=== PATIENT | male | born 1980 | race Caucasian/White ===

== ENCOUNTER 2017-12-23 02:47 | Emergency (ER) | payer OTHER ==
[~2017-12-23] VITALS: Ht 180.3 cm; Wt 81.7 kg
[~2017-12-23 02:47] MED LIST: NOHOMEMEDICATIONS
[2017-12-23 04:10] VITALS: BP 148/109
== END 2017-12-23 04:11 | disposition home or self-care (01) ==
LOC: M.ERS 02:47
DX: H10.9 Unspecified conjunctivitis (principal); F17.210 Nicotine dependence, cigarettes, uncomplicated; Z88.5 Allergy status to narcotic agent; Z88.6 Allergy status to analgesic agent

== ENCOUNTER 2018-01-03 13:51 | Inpatient (IN) | payer OTHER ==
[~2018-01-03] VITALS: Ht 180.3 cm; Wt 87.4 kg
[2018-01-03 13:58] VITALS: BP 151/106
[2018-01-03] MEDS ORDERED: PRED-FORTE OPHTH1 M1 INTRAOCULR (14:01)
[2018-01-03 14:14] LABS: HEMATOCRIT 53.4 % (42.0-52.0); HEMOGLOBIN 18.3 gm/dL (14.0-18.0); MCH 30.7 pg (26.0-34.0); MCHC 34.3 g/dL (28.0-37.0); MCV 89.3 fL (80.0-100.0); MPV 8.3 fl. (7.2-11.1); NUCLEATED RBCS 0 /100WBC; PLATELET COUNT* 340 thou/uL (150-400); RBC 5.98 mil/uL (4.50-6.00); RDW-CV 13.2 % (10.5-14.5); WBC 22.3 thou/uL (4.0-11.0)
[2018-01-03 14:24] LABS: CALCIUM 9.9 mg/dL (8.5-10.1); CREATININE 1.3 mg/dL (0.6-1.3); POTASSIUM 3.5 mmol/L (3.5-5.1)
[2018-01-03 14:29] LABS: ALBUMIN 4.2 g/dL (3.4-5.0); TOTAL BILIRUBIN 0.3 mg/dL (<0.1-1.0)
[2018-01-03 14:51] LABS: ABSOLUTE LYMPHOCYTES 1.8 thou/uL (0.8-5.3); ABSOLUTE MONOCYTES 1.1 thou/uL (0.0-1.2); ABSOLUTE NEUTROPHILS 19.4 thou/uL (1.6-8.1)
[2018-01-03 14:52] LABS: LARGE PLATELETS OCCASIONAL; PLATELET ESTIMATE ADEQUATE
[2018-01-03 15:55] VITALS: BP 157/117
[2018-01-03 16:42] VITALS: BP 159/108
--- NOTE | 2018-01-03 17:26 | NUR ---
ASSUMED CARE OF PATIENT AT 1605 AFTER TRANSFER TO ROOM 230 FROM EMERGENCY DEPARTMENT. PATIENT AWAKE, ALERT, AND ORIENTED APPROPRIATELY. ADMISSION ASSESSMENT AND DOCUMENTATION COMPLETED AND CHARTED. COMPLAINED OF PAIN. GIVEN PRN MEDICATIONS, SEE EMAR FOR DOCUMENTATION. HYPERTENSIVE, BUT OTHER VITAL SIGNS STABLE. OXYGEN SATURATION WITHIN NORMAL LIMITS ON ROOM AIR. PATIENT IS UP AD JEFF. EDUCATED ON HOW TO USE CALL LIGHT APPROPRIATELY, WITHIN REACH. DENIES NEEDS AT THIS TIME. NURSING WILL CONTINUE TO MONITOR.
[2018-01-03 19:52] VITALS: BP 157/109
[2018-01-04] VITALS: BP 168/102
[2018-01-04 04:00] VITALS: BP 164/94
--- NOTE | 2018-01-04 06:51 | NUR ---
Pt received IV fentanyl q3h overnight. Rating pain 8-9, but reports adequate relief after each dose though states "it wears off within an hour." This am, pt reports he is more comfortable, states abdomen feels sore today rather than acutely painful. BP 150s-160s/90s-100s. States he tends to run high in hospital or doctor's office due to "white coat syndrome." NPO. Up ad jun in room, and up in hallway this morning per pt request; gait steady. Will continue to monitor.
[2018-01-04 08:02] VITALS: BP 130/94
--- NOTE | 2018-01-04 09:15 | NUR ---
ASSUMED CARE OF PATIENT AFTER REPORT THIS MORNING. PATIENT AWAKE, ALERT, AND ORIENTED APPROPRIATELY. PHYSICAL ASSESSMENT COMPLETED AND CHARTED. COMPLAINED OF PAIN. VITAL SIGNS STABLE. OXYGEN SATURATION WITHIN NORMAL LIMITS ON ROOM AIR. REFUSED SCHEDULED EYE DROPS, GIVEN PRN PAIN MEDICATION, SEE EMAR FOR DOCUMENTATION. PATIENT IS UP AD JEFF IN ROOM. RECEIVING IV FLUIDS AT THIS TIME AT ORDERED RATE OF 250 ML/HR. USES CALL LIGHT APPROPRIATELY, WITHIN REACH. DENIES NEEDS AT THIS TIME. NURSING WILL CONTINUE TO MONITOR.
--- NOTE | 2018-01-04 13:25 | NUR ---
MET WITH PT TO DISCUSS HOME SITUATION/DC PLANNING. PT LIVES WITH HIS 12Y/O DTR. MOTHER LIVES CLOSEBY AND IS SUPPORTIVE. PT IS GETTING READY TO START NEW JOB, IS ON COBRA FROM HIS PREVIOUS JOB AT THIS TIME. DENIES ETOH EXCEPT FOR 1-2X/MONTH. DR MERINO IN AND DISCUSSED DX AND PLAN WITH PT. HE WAS ABLE TO ASK QUESTIONS. PT IS INDEPENDENT AND ACTIVE. DENIES NEEDS AT THIS TIME. WILL FOLLOW
[2018-01-04 13:35] LABS: CALCIUM 8.3 mg/dL (8.5-10.1); CREATININE 0.8 mg/dL (0.6-1.3); MAGNESIUM 1.8 mg/dL (1.8-2.4); POTASSIUM 3.7 mmol/L (3.5-5.1)
[2018-01-04 16:00] VITALS: BP 144/92
--- NOTE | 2018-01-04 17:43 | NUR ---
PATIENT REMAINS ALERT AND ORIENTED APPROPRIATELY. HAS RECEIVED PRN PAIN MEDICATIONS SOON ORDERED FREQUENCY ALLOWS. UP AD JEFF. DENIES NEEDS AT THIS TIME. CALL LIGHT WITHIN REACH. NURSING WILL CONTINUE TO MONITOR.
[2018-01-04 19:53] VITALS: BP 150/98
[2018-01-05] VITALS: BP 155/100
[2018-01-05 04:00] VITALS: BP 155/49
[2018-01-05 04:37] LABS: ABSOLUTE BASOPHILS 0.1 thou/uL (0.0-0.2); ABSOLUTE LYMPHOCYTES 0.7 thou/uL (0.8-5.3); ABSOLUTE MONOCYTES 1.2 thou/uL (0.0-1.2); BASOPHILS 0.2 %; LYMPHOCYTES 3.1 %; MCH 30.1 pg (26.0-34.0); MCHC 32.8 g/dL (28.0-37.0); MCV 91.6 fL (80.0-100.0); MONOCYTES 4.9 %; MPV 8.4 fl. (7.2-11.1); NUCLEATED RBCS 0 /100WBC; POLYS 91.8 %; RDW-CV 13.6 % (10.5-14.5)
[2018-01-05 04:58] LABS: ALBUMIN 2.9 g/dL (3.4-5.0); CALCIUM 7.7 mg/dL (8.5-10.1); CREATININE 0.8 mg/dL (0.6-1.3); HEMOGLOBIN 14.5 gm/dL (14.0-18.0); PLATELET COUNT* 208 thou/uL (150-400); POTASSIUM 3.4 mmol/L (3.5-5.1); TOTAL BILIRUBIN 0.8 mg/dL (<0.1-1.0); TOTAL PROTEIN 5.6 g/dL (6.4-8.2)
--- NOTE | 2018-01-05 06:13 | NUR ---
Pt reports he slept "on and off" overnight. No complaints. VSS; HR 40s-60s. SB-SR per monitor. Pt states he is hopeful of being discharged today. Will continue to monitor.
--- NOTE | 2018-01-05 06:16 | NUR ---
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 Receiving fentanyl every 3-4 hours per pt request. States he has not passed flatus all shift. Bwl snds hypoactive; abdomen round and firm. Reports last bowel movement was 7/10 am prior to admission. Lipase level this am down to 1800. Pt ambulating in hallway at times; encouraged to increase activity as he is able to promote GI motility and for DVT prevention. VSS. Will continue to monitor.
[2018-01-05 08:00] VITALS: BP 157/99
--- NOTE | 2018-01-05 12:52 | EKG ---
[place] [address] ELECTROCARDIOGRAM REPORT Name: ZBIGNIEW RODRIGUEZ Room: [address] ADM [place] [facility]#: [id number] Admission: 01/03/18 Attend Phys: Destiny Poole Discharge: Date of : 78 Report #: [id number] THIS REPORT FOR: //name// [facility] ED Test Date: 2018-01-03 Test Time: 15:53:23 Pat Name: ZBIGNIEW MICHAEL Department: Room: [place] [address] Gender: M Full Fashioned Garment Knitter: Dustin GUERRERO : 1980 Requested By: Rishi Hui Order Number: [id number] MD: Deon Casanova Measurements Intervals [place] Rate: 88 P: 56 TN: 161 QRS: -53 QRSD: 94 T: 30 QT: 381 QTc: 461 Interpretive Statements Sinus rhythm Probable left atrial enlargement RSR' in V1 or V2, right VCD or RVH Inferior infarct, old Consider anterior infarct No previous ECG available for comparison Electronically Signed On 01-05-2018 12:52:46 CDT by Deon Casanova [email or web address] <ELECTRONICALLY SIGNED> By: Deon Casanova MD, [facility] 01/05/18 1252 1553 1553 Deon Casanova MD, [facility] /EPI
[2018-01-05 16:12] VITALS: BP 174/106
--- NOTE | 2018-01-05 19:55 | NUR ---
RECEIVED REPORT FROM FRANCISCA CARR. ASSUMED CARE OF PT AROUND 0730. PT A&OX4. VSS. O2 SAT 94% ON RA. PT M/S STATUS. AM ASSESSMENT AND VITALS COMPLETED CHARTED. IV TO LEFT AC INTACT AND INFUSING IVF. PT HAS COMPLAINED OF GENERALIZED ABDOMINAL PAIN THIS SHIFT THAT HAS BEEN MANAGED WITH IV PAIN MEDICATION WITH PARTIAL RELIEF. PT UNABLE TO TOLERATE ADVANCEMENT IN DIET THIS SHIFT - PT STATED THAT PAIN WORSENED WITH FOOD. PT HAS BEEN UP TO THE BATHROOM TO VOID SEVERAL TIMES THIS SHIFT. PT INFORMED OF PLAN OF CARE, COMMUNICATES UNDERSTANDING. PT CURRENTLY RESTING IN BED. HOURLY ROUNDING PERFORMED. LOW FALL RISK PRECAUTIONS IN PLACE. CALL LIGHT IS WITHIN REACH.
[2018-01-05 20:40] VITALS: BP 167/106
[2018-01-06] VITALS: BP 167/103
[2018-01-06 04:00] VITALS: BP 175/110
--- NOTE | 2018-01-06 06:17 | NUR ---
PT AWAKE ON AND OFF THIS SHIFT. ASSESSMENT DOCUMENTED. MEDS GIVEN PER E-MAR. IV PATENT, FLUIDS INFUSING. PT REPORTED PAIN, PAIN MEDS GIVEN PER E-MAR. PT STATED HEAT HELPS PAIN. WILL CONTINUE WITH PLAN OF CARE.
[2018-01-06 08:00] VITALS: BP 164/119
--- NOTE | 2018-01-06 11:14 | NUR ---
RECEIVED REPORT FROM MARY CARR. ASSUMED CARE OF PT AROUND 0730. PT A&O X4, VSS, O2 SAT 97% ON RA. PT M/S STATUS. AM ASSESSMENT AND VITALS COMPLETED CHARTED. IV TO LEFT AC INTACT AND INFUSING IVF. PT STILL REQUIRING IV PAIN MEDICATION Q3HRS FOR PAIN, ALTHOUGH PT STATES THAT HIS PAIN IS SOME BETTER TODAY COMPARED WITH YESTERDAY. HEATING PAD ALSO OBTAINED FOR PT AND APPLIED TO HIS BACK - PT REPORTS RELIEF WITH HEATING PAD. PT ABLE TO EAT PART OF A BANANA, SOME CEREAL, AND SOME PEACHES FOR BREAKFAST THIS AM. PT ALSO ABLE TO SHOWER. PT CONCERNED ABOUT COMING OFF IV PAIN MEDICATION DUE TO LIMITED ORAL PAIN MEDICATION OPTIONS AVALIABLE TO PT - PT IS ALLERGIC TO OPIOIDS. PT CURRENTLY RESTING IN BED. CALL LIGHT IS WITHIN REACH, LOW FALL RISK PRECAUTIONS IN PLACE. HOURLY ROUNDING PERFORMED. WCTM.
[2018-01-06 15:38] VITALS: BP 168/111
--- NOTE | 2018-01-06 15:42 | NUR ---
PT PASSED OFF TO MOHIT CARR, REPORT GIVEN.
--- NOTE | 2018-01-06 19:54 | NUR ---
RECIEVED REPORT FROM BRUNO GARCÍA. PT RESTING IN BED, DENIES NEED FOR PAIN MEDS. STARTED ON K+ TONIGHT TO REPLACE. VERBALIZES NEEDS APPROPRILATY. REPORT GIVEN TO ONCOMING SOFIE CARR.
[2018-01-06 20:10] VITALS: BP 167/111
[2018-01-07 00:23] VITALS: BP 176/103
[2018-01-07 03:54] VITALS: BP 157/103
[2018-01-07 05:11] LABS: POTASSIUM 2.9 mmol/L (3.5-5.1)
--- NOTE | 2018-01-07 06:46 | NUR ---
PT IS ABLE TO COMMUNICATE HIS NEEDS TO STAFF EFFECTIVELY. CURRENT ORAL PAIN MEDICATION REGIMEN HAS BEEN ADEQUATE FOR CONTROLLING HIS PAIN UP TO THIS TIME; HE HAS REFUSED IV PAIN MEDICATIONS DURING THIS SHIFT, UP TO THIS TIME. PT HAS BEEN UP AMBULATING IN THE NAVARRETE TWICE DURING THIS SHIFT SO FAR. POSSIBLE DISCHARGE LATER TODAY.
[2018-01-07 08:00] VITALS: BP 159/109
--- NOTE | 2018-01-07 08:00 | NUR ---
ASSUMED PT. CARE AND RECEIVED REPORT AT 0730. PT A/OX4, VSS, PT. MED/SURG STATUS. ON RA @ 100%. PT. STATES PAIN IN ABD. IS 4/10. FULL ASSESSMENT COMPLETED, REFER TO CHARTING. IVF'S AND IV K+ INFUSING PER ORDERS. CALL LIGHT IN REACH, WILL CONTINUE [facility] PLAN OF CARE.
[2018-01-07] MEDS ORDERED: ROXICODONE5 M2 PO (10:40)
[2018-01-07] MEDS ORDERED: MIRALAX17 GM PO (11:43)
[2018-01-07 11:44] VITALS: BP 159/109
[2018-01-07] MEDS ORDERED: TYLENOL EXTRA500 MG PO (11:44)
[2018-01-07 14:52] LABS: HEMATOCRIT 44.4 % (42.0-52.0); HEMOGLOBIN 14.6 gm/dL (14.0-18.0); MCH 30.2 pg (26.0-34.0); MCHC 32.8 g/dL (28.0-37.0); MCV 91.9 fL (80.0-100.0); MPV 9.1 fl. (7.2-11.1); RBC 4.83 mil/uL (4.50-6.00); RDW-CV 13.7 % (10.5-14.5); WBC 19.4 thou/uL (4.0-11.0)
--- NOTE | 2018-01-07 15:30 | NUR ---
DR. MCCORMACK CONTACTED TO INQUIRE ABOUT PLAN FOR DC. DC ORDERS WRITTEN [place] . DISCUSSED PT C/O OF CONSTIPATION, EATING BREAKFAST/LUNCH, AND CURRENT LIPASE. ORDERS RECEIVED FOR CBC AND MAG CITRATE. STATED HE WANTED TO SEE PT. THIS EVENING BEFORE DECIDING, BUT WAS NOT KEEN ON PT. LEAVING TODAY.
[2018-01-07 16:20] VITALS: BP 172/104
--- NOTE | 2018-01-07 19:03 | NUR ---
POTASSIUM REMAINS BELOW NORMAL LIMITS, RESTARTED ON IV POTASSIUM FOR REPLACEMENT. PT. STATES HE DID NOT EAT DINNER. OFFERED SNACK/LIQUIDS ON UNIT DECLINED AT THIS TIME, STATES HE HAS NO APPETITE. PT. STATES HE IS HAVING ACTIVE BOWEL SOUNDS/ACTIVITY, BUT NO BM OF YET. PT. IS OBSESSING ABOUT HAVING A BM, THINKS IT WILL MAKE HIM FEEL BETTER. HOURLY ROUNDING COMPLETED THROUGH OUT THE DAY FOR PT. SAFETY.
[2018-01-07 20:36] VITALS: BP 167/110
[2018-01-08 04:00] VITALS: BP 156/101
[2018-01-08 04:38] LABS: HEMATOCRIT 46.5 % (42.0-52.0); HEMOGLOBIN 15.6 gm/dL (14.0-18.0); MCH 30.4 pg (26.0-34.0); MCHC 33.5 g/dL (28.0-37.0); MCV 90.6 fL (80.0-100.0); MPV 8.1 fl. (7.2-11.1); NUCLEATED RBCS 0 /100WBC; PLATELET COUNT* 280 thou/uL (150-400); RBC 5.13 mil/uL (4.50-6.00); RDW-CV 13.4 % (10.5-14.5); WBC 22.5 thou/uL (4.0-11.0)
[2018-01-08 04:53] LABS: CALCIUM 8.8 mg/dL (8.5-10.1); CREATININE 0.7 mg/dL (0.6-1.3); MAGNESIUM 2.6 mg/dL (1.8-2.4); PHOSPHORUS* 2.1 mg/dL (2.5-4.9)
[2018-01-08 04:58] LABS: POTASSIUM 4.3 mmol/L (3.5-5.1)
--- NOTE | 2018-01-08 05:52 | NUR ---
PT IS ABLE TO COMMUNICATE HIS NEEDS TO STAFF EFFECTIVELY. HE HAS DENIED THE NEED FOR PAIN MEDICATION UP TO THIS TIME. PT DID RESUME HAVING BOWEL MOVEMENTS LATE LAST NIGHT; REPORTS FEELING "LESS BLOATED" BUT DID HAVE SOME NAUSEA. PT HAS BEEN GETTING UP TO THE BATHROOM AND WALKING IN HIS ROOM DURING THIS SHIFT. GI HAS BEEN CONSULTED. POSSIBLE D/C SOON PENDING GI EVALUATION.
[2018-01-08 06:00] LABS: ABSOLUTE LYMPHOCYTES 0.9 thou/uL (0.8-5.3); ABSOLUTE MONOCYTES 1.1 thou/uL (0.0-1.2); ABSOLUTE NEUTROPHILS 20.5 thou/uL (1.6-8.1); ANISOCYTOSIS Occasional; PLATELET ESTIMATE ADEQUATE
[2018-01-08 06:01] LABS: TOXIC GRANULATION 1+
--- NOTE | 2018-01-08 14:06 | NUR ---
ORDER RECEIVED TO DISCHARGE [facility] TO SELF CARE. MED REC, MEDICATION EDUCATION, STROKE EDUCATION, SMOKING CESSATION, AND NEED FOR FOLLOW UP APPOINTMENTS WITH PRIMARY AND DR MCCORMACK COVERED AND STATED UNDERSTOOS BY PATIENT. IV DC'D AND PATINET CHOSE TO AMBULATE TO CAR OUTSIDE OF E.D. HOURLY ROUNDING COMPLETD FOR PATIENT SAFETY AND PATINET PARTICIPATED IN PLAN OF CARE. PATIENT GIVEN EXTENSIVE EDUCATION RELATED TO DIET AND SIGNS OF WHEN TO CALL FOR ADDITIONAL ASSISTANCE IF NEEDED. DC TIME OF 14l:00.
--- NOTE | 2018-01-10 16:59 | CON ---
[address] [address] CONSULTATION Name: ZBIGNIEW RODRIGUEZ Room: [address]#: [id number] Admission: 01/03/18 Attend Phys: Destiny Poole Discharge: 01/08/18 Date of : 78 Report #: [id number] THIS REPORT FOR: //name// CC: [facility] physician/PCP Crescencio Howe DATE OF SERVICE: 01/06/2018 REQUESTING PHYSICIAN: Crescencio Howe DO REASON FOR CONSULT: Persistent abdominal pain and pancreatitis. HISTORY OF PRESENT ILLNESS: This is a 37-year-old male who was admitted to hospital on 01/03/2018 with abdominal pain. The patient found to have evidence of pancreatitis as his lipase was elevated above 10,000. There was also CT finding suggestive of peripancreatic inflammation and stranding. Since hospitalization, the patient has been on IV fluids and pain control. Since his pain was not improving today, we were consulted. CT of abdomen and pelvis has been ordered to be repeated as the patient has persistent leukocytosis and abdominal pain. The patient is going to CT at this time. PAST MEDICAL HISTORY: Unremarkable. ALLERGIES: No known drug allergy. MEDICATIONS: Please refer to hospital [facility]. SOCIAL HISTORY: The patient smokes half a pack of cigarettes per day and socially drinks. FAMILY HISTORY: Noncontributory. PHYSICAL EXAMINATION: VITAL SIGNS: Reveals blood pressure 164/119, respirations 20, pulse 83, temperature 98.1. LUNGS: Clear. CARDIOVASCULAR: Regular. ABDOMEN: Soft, tender to palpation in the epigastric region. Bowel sounds are positive. LABORATORY DATA: Reveal sodium of 138, potassium 3.4, BUN is 7, creatinine 0.8, glucose is 81. AST 31, ALT 19, alkaline phosphatase 76, total bilirubin is 0.8. Lipase is 1875, down from 10,698. WBC is 24 from 22,000. Hemoglobin is 14.5 and platelet of 208. IMAGING: [place] [address] CONSULTATION Name: ZBIGNIEW RODRIGUEZ Room: [address]#: [id number] Admission: 01/03/18 Attend Phys: Destiny Poole Discharge: 01/08/18 Date of : 78 Report #: [id number] ASSESSMENT AND PLAN: The patient with acute pancreatitis who has persistent abdominal pain and leukocytosis. I agree with repeating CT to assure that the patient does not have peripancreatic abscess or phlegmons. We will continue monitoring and follow up with his CT results. We will make further recommendation based on the CT. Please note that there is no evidence of biliary causes for pancreatitis as the patient's liver enzymes are within normal levels. <ELECTRONICALLY SIGNED> By: Any Carlton MD 01/10/18 1659 1358 2020Any Carlton MD /wei
== END 2018-01-08 13:58 | disposition home or self-care (01) | DRG 439 ==
LOC: M.ERS 13:51 → M.TBA-ER 15:06 → M.2W 15:06
PROVIDERS: Internal Medicine Gastroenterology; Physician Assistant; ADMIT Internal Medicine
DX: K85.90 Acute pancreatitis without necrosis or infection, unspecified (principal); R65.10 Systemic inflammatory response syndrome (SIRS) of non-infectious origin without acute organ dysfunction; E44.1 Mild protein-calorie malnutrition; D72.829 Elevated white blood cell count, unspecified; F17.210 Nicotine dependence, cigarettes, uncomplicated; Z88.6 Allergy status to analgesic agent

== ENCOUNTER 2018-01-17 10:16 | Inpatient (IN) | payer OTHER ==
[~2018-01-17] VITALS: Ht 180.3 cm; Wt 76.0 kg
[~2018-01-17 10:16] MED LIST changes: +MIRALAX17 GM PO; +PRED-FORTE OPHTH1 M1 INTRAOCULR; +ROXICODONE5 M2 PO; +TYLENOL EXTRA500 MG PO
[2018-01-17 10:23] VITALS: BP 122/76
[2018-01-17 10:46] LABS: ABSOLUTE BASOPHILS 0.1 thou/uL (0.0-0.2); ABSOLUTE EOSINOPHILS 0.2 thou/uL (0.0-0.7); ABSOLUTE LYMPHOCYTES 1.9 thou/uL (0.8-5.3); ABSOLUTE MONOCYTES 0.8 thou/uL (0.0-1.2); ABSOLUTE NEUTROPHILS 12.1 thou/uL (1.6-8.1); BASOPHILS 0.4 %; EOSINOPHILS 1.3 %; HEMATOCRIT 47.6 % (42.0-52.0); HEMOGLOBIN 15.8 gm/dL (14.0-18.0); LYMPHOCYTES 12.4 %; MCH 29.7 pg (26.0-34.0); MCHC 33.2 g/dL (28.0-37.0); MCV 89.7 fL (80.0-100.0); MONOCYTES 5.6 %; MPV 8.2 fl. (7.2-11.1); NUCLEATED RBCS 0 /100WBC; PLATELET COUNT* 451 thou/uL (150-400); POLYS 80.3 %; RBC 5.31 mil/uL (4.50-6.00); RDW-CV 13.5 % (10.5-14.5)
[2018-01-17 10:58] LABS: CALCIUM 10.1 mg/dL (8.5-10.1); CREATININE 1.2 mg/dL (0.6-1.3); POTASSIUM 3.8 mmol/L (3.5-5.1)
[2018-01-17 11:02] LABS: ALBUMIN 3.6 g/dL (3.4-5.0); TOTAL BILIRUBIN 0.6 mg/dL (<0.1-1.0); TOTAL PROTEIN 8.7 g/dL (6.4-8.2)
[2018-01-17 11:11] LABS: URINE BILIRUBIN NEGATIVE (Negative); URINE BLOOD NEGATIVE (Negative); URINE CLARITY CLEAR; URINE COLOR YELLOW; URINE GLUCOSE-RANDOM NEGATIVE (Negative); URINE KETONES 1+ (Negative); URINE LEUKOCYTES-REFLEX NEGATIVE (Negative); URINE NITRITE-REFLEX NEGATIVE (Negative); URINE PROTEIN NEGATIVE (Negative); URINE SPECIFIC GRAVITY <= 1.005 (1.005-1.030); URINE UROBILINOGEN 0.2 E.U./dl (0.2-1.0)
[2018-01-17 15:05] VITALS: BP 139/99
[2018-01-17 15:15] VITALS: BP 142/101
--- NOTE | 2018-01-17 16:53 | NUR ---
PATIENT ADMITTED TO ROOM 313 FROM ER. ALERT AND ORIENTED X 4. RATING ABD PAIN A 4/10, PRN FENTANYL GIVEN PER AUG ORDERS. PATIENT TAKING IN ICE CHIPS, OK PER GI. NO SKIN BREAKDOWN NOTED. UP AD JEFF. ORIENTED TO CALL LIGHT. CALL LIGHT WITHIN REACH, WILL CONTINUE TO MONITOR.
[2018-01-17 19:50] VITALS: BP 151/99
--- NOTE | 2018-01-18 05:46 | NUR ---
PT SLEPT ON AND OFF THIS SHIFT. ASSESSMENT DOCUMENTED. MEDS GIVEN PER E-MAR. IV PATENT, FLUIDS INFUSING. PAIN MEDS GIVEN PER E-MAR PER PT REQUEST. PT HAD ONE EPISODE OF EMESIS THIS SHIFT. PT REPORTS HAVING SPASMS IN ABDOMEN. WILL CONTINUE WITH PLAN OF CARE.
[2018-01-18 07:50] VITALS: BP 149/103
--- NOTE | 2018-01-18 13:40 | NUR ---
CM SPOKE TO THE PATIENT TO DISCUSS HOME SITUATION, DISCHARGE PLANNING, AND TO INFORM OF THE ROLE OF CM. PATIENT ALERT, ORIENTED, ACTIVE AND INDEPENDENT. PATIENT RESIDES AT HOME WITH DTR. PATIENT DOES NOT ANTICIPATE ANY NEEDS AT D/C. CM WILL REMAIN AVAILABLE TO ASSIST AND FOLLOW NEEDED.
--- NOTE | 2018-01-18 16:19 | NUR ---
PATIENT GIVEN PRN FENTANYL Q2 HOURS FOR ABD PAIN. PATIENT VOMITTED X 2 THIS SHIFT, PRN ZOFRAN GIVEN ORDERED. IVF INFUSING ORDERED. PATIENT UP AD JEFF AROUND ROOM. CLEAR LIQUIDS STARTED THIS EVENING AFTER ABD US WAS COMPLETED, RESULTS PENDING AT THIS TIME. PRN LEVSIN STARTED THIS SHIFT.
[2018-01-18 16:41] VITALS: BP 136/94
--- NOTE | 2018-01-18 16:41 | CON ---
[facility] [address] [place] [address] CONSULTATION Name: ZBIGNIEW RODRIGUEZ Room: [address] [place] .R.#: [id number] Admission: 01/17/18 Attend Phys: Destiny Poole Discharge: Date of : 78 Report #: [id number] THIS REPORT FOR: //name// CC: [facility] physician/PCP Mae Howe DICTATED BY: Deedee GOODENP DATE OF SERVICE: 01/18/2018 PRIMARY CARE PHYSICIAN: Mae Evans M.D. Please note at the time of this dictation, the patient was seen and physically examined by myself. REASON FOR CONSULTATION: Recurrent pancreatitis and abdominal pain. HISTORY OF PRESENT ILLNESS: This is a 37-year-old male who presented to the Emergency Room with abdominal discomfort that was progressively getting worse. The patient had been discharged from the hospital on 01/08/2018 for the same factor, prompting him to return. At the time of discharge, his lipase level had gone back down to normal and he was to follow up with us in the office. The patient states once he is discharged, he eats out a lot, mainly fast food, at least twice a day. It was also noted on CT on 01/03/2018 that he had a 4-cm cyst forming and now it is up to 6.5. He states that his pain was getting significantly worse, prompting him to come back in. He denied any fever or chills and he denies any alcohol on a regular basis. ALLERGIES: CODEINE, MORPHINE AND OPIOIDS. MEDICATIONS: From home was mainly Roxicodone, otherwise negative. PAST MEDICAL HISTORY: He has had recurrent pancreatitis. PAST SURGICAL HISTORY: SVT with an ablation and a right knee surgery. FAMILY HISTORY: Negative. SOCIAL HISTORY: Alcohol, maybe once a month, but not on a regular basis. Denies any tobacco or illegal drug use. REVIEW OF SYSTEMS: Twelve-point review of systems is essentially negative, except what is mentioned in the HPI. PHYSICAL EXAMINATION: [place] [address] CONSULTATION Name: ZBIGNIEW RODRIGUEZ Room: [address] IN [facility]#: [id number] Admission: 01/17/18 Attend Phys: Destiny Poole Discharge: Date of : 78 Report #: [id number] VITAL SIGNS: Temperature 36.5, pulse 77, respirations 16 and blood pressure 149/103. HEART: Regular rate and rhythm. LUNGS: Clear. ABDOMEN: Soft. Positive bowel sounds in all 4 quadrants, with tenderness noted in the left upper to mid epigastric area. LABORATORY DATA: Hemoglobin 15.8, hematocrit 47.6, white count is 15 and platelets 451,000. Lipase is 2779 on admission and it is down to 1567. Sodium 134, potassium 3.8, chloride 97, CO2 of 27, BUN is 10, creatinine is 1.2, GFR is 68 and glucose is 105. CT this time shows mild steatosis with a large fluid collection over the pancreatic head and neck region, with mild surrounding edema and this fluid collection is at 6.5 cm. IMPRESSION: 1. Abdominal pain, worsening. 2. Recurrent pancreatitis. 3. Leukocytosis. PLAN: 1. Levsin a.c. and at bedtime. 2. Recheck a lipase level now and we will also check an IgG-4 for autoimmune pancreatitis as well as fasting lipids in the a.m. 3. Trial of a clear liquid diet. 4. Consider possibility of draining of his pancreatic cyst. 5. Further recommendations to be made once Dr. Carlton sees the patient later today. Thank you for allowing us to participate in this patient's care. Please do not hesitate to call with any questions in regard to this consult. <ELECTRONICALLY SIGNED> By: Any Carlton MD 01/18/18 1641 1253 [id number] Carlton MD /nt
[2018-01-18 20:10] VITALS: BP 150/98
[2018-01-19 04:30] LABS: CHOLESTEROL 113 mg/dL (<200); HDL CHOLESTEROL 34 mg/dL (>40); LDL CHOLESTEROL 62 mg/dL (<100); TC:HDL 3.3 Ratio (Not establshd); TRIGLYCERIDE 88 mg/dL (<150); VLDL 18 mg/dL (<40)
[2018-01-19 04:48] LABS: SERUM ASSESSMENT CLEAR
--- NOTE | 2018-01-19 06:20 | NUR ---
PT AWAKE ON AND OFF THIS SHIFT. ASSESSMENT DOCUMENTED. MEDS GIVEN PER E-MAR. PT REPORTED UNCONTROLLABLE PAIN THIS SHIFT. PT STATED THAT DILAUDED REALLY KNOCKED HIM OUT AND LET HIM SLEEP. PT STATED THIS AM THAT THE DILAUDED STARTS TO WEAR OFF AFTER 2 HOURS. PT UP WALKING NAVARRETE SEVERAL TIMES THIS SHIFT. PT REFUSED HIS HYOSCYAMINE BECAUSE HE STATED THAT IT DID NOTHING TO HELP HIS CRAMPING, ONLY THE DILAUDED HELPED. IV PATENT, FLUIDS INFUSING. WILL CONTINUE WITH PLAN OF CARE.
[2018-01-19 08:57] VITALS: BP 136/95
--- NOTE | 2018-01-19 15:47 | NUR ---
ASSUMED CARES OF PT AT 0700. PT IN BED, BED IN LOW LOCKED POSITION. PT CRYING R/T PAIN HE REPORTS AT 9/10 AT SHIFT CHANGE. IVP DILAUDID EFFECTIVE.VSS ON RA, AFEBRILE, PERRLA, SKIN INTACT WITH SCATTERED BRUISING AND SCARS. PT UP AD JEFF. RIGHT AC IV PATENT TO FLUIDS AT 250 ML/HR, TOLERATED. FULL LIQUID DIET, TOLERATED AT THIS TIME. CONSULTS INCLUDE GI. PT REFUSES LEVSIN, PT STATES IT DOES NOT DO ANYTHING FOR PAIN/SPASMS. CALL BUTTON AND PERSONAL ITEMS IN PT REACH. PT SLEEPING MUCH OF SHIFT TO THIS TIME. HOURLY ROUNDING CONTINUES. WILL CONTINUE TO MONITOR PT STATUS AND PROGRESS.
[2018-01-19 16:23] VITALS: BP 159/109
--- NOTE | 2018-01-19 20:16 | NUR ---
REPORT TO UNDERWRITING CLERKS SUPERVISOR FOR CONTINUED CARES. PT STABLE AT SHIFT CHANGE. SCHEDULED FOR ABD XRAY SERIES AND CT OF ABD/PELVIS PER DR. HORTA WHO WANTS TO BE CALLED WITH TEST RESULTS THIS EVENING. IV IN RIGHT AC PATENT WITH NS AT 250 ML/HR, TOLERATED. PT REQUESTS DILAUDID (SCHEDULED Q4HR) Q 4-5 HOURS CONSISTENTLY, 1 ML IS ALL THAT IS NEEDED, IT MAKES PT VERY SLEEPY AND CONTROLS PAIN WELL. OCCASIONAL NAUSEA REPORTED BY PT BUT MEDS WERE PT REFUSED. PT REFUSES LEVISIN CONSISTENTLY HE REPORTS IT DOES NOTHING FOR HIM. HOURLY ROUNDING COMPLETED.
[2018-01-19 21:10] LABS: IgG 973 mg/dL (700-1600)
[2018-01-19 22:25] VITALS: BP 152/100
--- NOTE | 2018-01-20 00:23 | NUR ---
CALL PLACED TO GI ANSWERING SERVICE FOR A RETURN CALL TO GIVE RESULTS OF PT'S CT AND 3-VIEW ABD SERIES AT 2250. NO RETURN CALL AT THIS TIME.
[2018-01-20 04:45] LABS: HEMATOCRIT 37.5 % (42.0-52.0); MCH 29.7 pg (26.0-34.0); MCV 90.1 fL (80.0-100.0); NUCLEATED RBCS 0 /100WBC; RBC 4.16 mil/uL (4.50-6.00); RDW-CV 13.5 % (10.5-14.5); WBC 15.3 thou/uL (4.0-11.0)
[2018-01-20 04:58] LABS: ALBUMIN 2.5 g/dL (3.4-5.0); CREATININE 0.7 mg/dL (0.6-1.3); POTASSIUM 3.8 mmol/L (3.5-5.1); TOTAL BILIRUBIN 1.1 mg/dL (<0.1-1.0); TOTAL PROTEIN 5.7 g/dL (6.4-8.2)
[2018-01-20 04:59] LABS: HEMOGLOBIN 12.4 gm/dL (14.0-18.0); PLATELET COUNT* 363 thou/uL (150-400)
[2018-01-20 05:52] LABS: ABSOLUTE LYMPHOCYTES 1.2 thou/uL (0.8-5.3); ABSOLUTE MONOCYTES 1.2 thou/uL (0.0-1.2); ABSOLUTE NEUTROPHILS 12.9 thou/uL (1.6-8.1)
[2018-01-20 05:53] LABS: ANISOCYTOSIS 1+; PLATELET ESTIMATE ADEQUATE; POIKILOCYTOSIS 1+
[2018-01-20 07:45] VITALS: BP 136/97
--- NOTE | 2018-01-20 11:12 | NUR ---
Nutrition: Recommend Vital AF 1.2 @ goal rate 75mL/hr. See RD Assessment Form for details.
[2018-01-20 17:01] VITALS: BP 148/103
[2018-01-21] VITALS: BP 142/88
[2018-01-21 04:45] LABS: ABSOLUTE EOSINOPHILS 0.2 thou/uL (0.0-0.7); ABSOLUTE LYMPHOCYTES 1.1 thou/uL (0.8-5.3); ABSOLUTE MONOCYTES 1.3 thou/uL (0.0-1.2); ABSOLUTE NEUTROPHILS 10.6 thou/uL (1.6-8.1); BASOPHILS 0.3 %; EOSINOPHILS 1.7 %; HEMATOCRIT 35.7 % (42.0-52.0); HEMOGLOBIN 11.9 gm/dL (14.0-18.0); LYMPHOCYTES 8.1 %; MCHC 33.2 g/dL (28.0-37.0); MCV 90.2 fL (80.0-100.0); MONOCYTES 9.7 %; NUCLEATED RBCS 0 /100WBC; PLATELET COUNT* 364 thou/uL (150-400); POLYS 80.2 %; RBC 3.95 mil/uL (4.50-6.00); RDW-CV 13.3 % (10.5-14.5); WBC 13.2 thou/uL (4.0-11.0)
[2018-01-21 05:26] LABS: CALCIUM 8.1 mg/dL (8.5-10.1); CREATININE 0.7 mg/dL (0.6-1.3)
--- NOTE | 2018-01-21 05:52 | NUR ---
PATIENT SLEPT MOST OF THE NIGHT. IV FLUIDS CONTINUE TO INFUSE AT 250 ML/HR. PATIENT WAS GIVEN PAIN MEDICINE ABOUT EVERY THREE TO FOUR HOURS WITH GOOD RELIEF. WILL CONTINUE TO MONITOR.
[2018-01-21 11:49] VITALS: BP 127/95
[2018-01-21 16:05] VITALS: BP 146/99
--- NOTE | 2018-01-21 17:47 | NUR ---
PATIENT IS ALERT AND ORIENTED TODAY UP AD JEFF IN ROOM. PATIENT HAS HAD PAIN ALL DAY THAT IS SOMEWHAT CONTROLLED WITH IV PAIN MEDICATIONS. PATIENT HAS BECOME MORE BLOATED THE DAY WENT ON, IS PASSING GAS AND HAS BOWEL MOVEMENTS TODAY. APPETITE HAS BEEN OKAY TODAY ON FULL LIQUIDS, ABLE TO ADVANCE TOLERATED. CALL LIGHT IS IN REACH, WILL CONTINUE TO MONITOR.
[2018-01-21 20:00] VITALS: BP 147/103
[2018-01-21 22:15] VITALS: BP 142/97
--- NOTE | 2018-01-22 05:08 | NUR ---
PATIENT REMAINS ALERT AND ORIENTED X4 THROUGHOUT SHIFT. VITAL SIGNS STABLE ON ROOM AIR. IV PATENT IN THE RIGHT AC INFUSING AT 100 ML/HR PER ORDERS. ANTIBIOTICS INFUSED PER ORDERS. PAIN AND NAUSEA MANAGED WITH IV MEDICATION. TRANSFERS AD JEFF TO THE RESTROOM. REPOSITIONS SELF IN BED. POTASSIUM REPLACED PER ELECTROLYTE PROTOCOL. PATIENT PASSED LARGE AMOUNTS OF FLATUS AND STOOL THROUGHOUT NIGHT. HOURLY ROUNDING COMPLETE. BED IN LOW POSITION. CALL LIGHT WITHIN REACH. WILL CALL FOR ASSISTANCE.
[2018-01-22 05:21] LABS: HEMATOCRIT 37.3 % (42.0-52.0); HEMOGLOBIN 12.4 gm/dL (14.0-18.0); MCH 29.9 pg (26.0-34.0); MCHC 33.2 g/dL (28.0-37.0); MCV 90.2 fL (80.0-100.0); RBC 4.14 mil/uL (4.50-6.00); RDW-CV 13.5 % (10.5-14.5); WBC 12.2 thou/uL (4.0-11.0)
[2018-01-22 05:47] LABS: ALBUMIN 2.4 g/dL (3.4-5.0); CALCIUM 8.9 mg/dL (8.5-10.1); CREATININE 0.7 mg/dL (0.6-1.3); MAGNESIUM 1.8 mg/dL (1.8-2.4); POTASSIUM 4.3 mmol/L (3.5-5.1); TOTAL BILIRUBIN 2.6 mg/dL (<0.1-1.0); TOTAL PROTEIN 5.7 g/dL (6.4-8.2)
[2018-01-22 08:56] VITALS: BP 145/101
[2018-01-22 15:52] VITALS: BP 136/94
--- NOTE | 2018-01-22 18:01 | NUR ---
ASSUMED CARES OF PT AT 0700. PT IN BED, BED IN LOW LOCKED POSITION, CALL BUTTON AND PERSONAL ITEMS PLACED IN PT REACH. PT A&O X4, HRRR PER AUSCULTATION, LCTAB. VSS ON RA, AFEBRILE, SKIN INTACT, PT UP AD JEFF. BM TODAY. SCD'S REFUSED BY PT. RIGHT AC IV CHANGED TO LEFT UE FOR FLUIDS, SEE MAR. VSS ON RA, OCC. HYPERTENSIVE. FAMILY AT BEDSIDE MOST OF DAY. PAIN MEDS EFFECTIVE IVP, SEE MAR. PT REFUSED SHOWER/BATH TODAY. REPORT TO BE GIVEN TO SCABBLER FOR CONTINUED CARES. HOURLY ROUNDING CONTINUES. WILL CONTINUE TO MONITOR PT STATUS AND PROGRESS.
[2018-01-22 21:00] VITALS: BP 145/98
[2018-01-23 04:27] LABS: HEMATOCRIT 39.7 % (42.0-52.0); HEMOGLOBIN 13.3 gm/dL (14.0-18.0); MCH 30.3 pg (26.0-34.0); MCHC 33.4 g/dL (28.0-37.0); MCV 90.7 fL (80.0-100.0); MPV 8.5 fl. (7.2-11.1); RBC 4.38 mil/uL (4.50-6.00); RDW-CV 13.9 % (10.5-14.5)
[2018-01-23 04:49] LABS: ALBUMIN 2.4 g/dL (3.4-5.0); CALCIUM 8.8 mg/dL (8.5-10.1); CREATININE 0.8 mg/dL (0.6-1.3); POTASSIUM 3.6 mmol/L (3.5-5.1); TOTAL BILIRUBIN 2.6 mg/dL (<0.1-1.0); TOTAL PROTEIN 6.9 g/dL (6.4-8.2)
--- NOTE | 2018-01-23 06:04 | NUR ---
PATIENT SLEPT MOST OF THE NIGHT. PROCAL CONTINUES AT 125 ML/HR. PATIENT WAS GIVEN PAIN MEDICINE ABOUT EVERY THREE TO FOUR HOURS. NO COMPLAINTS OF NAUSEA. WILL CONTINUE TO MONITOR.
[2018-01-23 11:03] VITALS: BP 143/93
[2018-01-23 16:00] VITALS: BP 141/93
--- NOTE | 2018-01-23 17:45 | NUR ---
PATIENT IS ALERT AND ORIENTED TODAY, DROWSY MOST OF THE DAY. PAIN IS CONSISTENT. ORDER FOR DOBHOFF PLACEMENT BUT IT IS NOT AVAILABLE AT THIS TIME. VITAL SIGNS HAVE BEEN STABLE TODAY. PATIENT IS REFUSING TO EAT OR DRINK. UP AD JEFF IN ROOM, WILL CONTINUE TO MONITOR.
[2018-01-23 23:59] VITALS: BP 146/96
[2018-01-24 04:35] LABS: HEMATOCRIT 37.1 % (42.0-52.0); HEMOGLOBIN 12.6 gm/dL (14.0-18.0); MCH 30.6 pg (26.0-34.0); MCHC 33.8 g/dL (28.0-37.0); MCV 90.3 fL (80.0-100.0); MPV 8.6 fl. (7.2-11.1); RBC 4.11 mil/uL (4.50-6.00); RDW-CV 13.7 % (10.5-14.5); WBC 9.9 thou/uL (4.0-11.0)
[2018-01-24 04:55] LABS: ALBUMIN 2.2 g/dL (3.4-5.0); CALCIUM 8.5 mg/dL (8.5-10.1); CREATININE 0.6 mg/dL (0.6-1.3); MAGNESIUM 1.9 mg/dL (1.8-2.4); POTASSIUM 3.7 mmol/L (3.5-5.1); TOTAL BILIRUBIN 1.7 mg/dL (<0.1-1.0); TOTAL PROTEIN 6.5 g/dL (6.4-8.2)
--- NOTE | 2018-01-24 05:44 | NUR ---
PATIENT SLEPT WELL DURING THIS SHIFT. PT USED CPM LAST NOC FOR APPROX TWO HOURS; TOLERATED WELL. PT REQUESTED PAIN MEDICATION X1 PRIOR TO CPM. PT WITH FLUIDS INFUSING PER DR ORDER. PT WITH O2 @ 2LITERS AND CAPNO. CAPNO DID NOT ALARM DURING THIS SHIFT. DSG AND TINA WRAP ON RT KNEE C/D/I WITH POLAR PACK IN PLACE. PT WEARING THIGH MARYCRUZ HOSE ON LT LEG AND BILAT FOOT PUMPS. PT DENIES NEEDS AT THIS TIME. FREQUENTLY USED ITEMS AND CALL LIGHT WITHIN REACH. SIDERAILS UPX4 PER PT REQUEST. WILL CONTINUE TO MONITOR.
--- NOTE | 2018-01-24 06:33 | NUR ---
PATIENT SLEPT WELL DURING THIS SHIFT. PT UP AD JEFF IN ROOM. PT WITH PROCALAMINE INFUSING PER ORDER. PT REFUSING DOBHOFF DURING THIS SHIFT. PT SAYS HE MAY HAVE IT PUT IN THIS MORNING. PT REFUSING ALL PO MEDICATIONS EXCEPT SIMETHECONE. PT GIVEN DILUADID 1MG IV Q3H. PT WITH DISTENDED ABDOMEN. PT ABLE TO PASS FLATUS, NO BM ON THIS SHIFT. PT ANXIOUS ABOUT HIS MEDICAL CONDITION ASKING THE SAME QUESTIONS SEVERAL TIMES TO STAFF MEMBERS THAT ENTER THE ROOM. REASSURANCE GIVEN. FREQUENTLY USED ITEMS AND CALL LIGHT WITHIN REACH. SIDERAILS UPX2. WILL CONTINUE TO MONITOR.
[2018-01-24 08:00] VITALS: BP 139/100
[2018-01-24 16:00] VITALS: BP 136/88
--- NOTE | 2018-01-24 17:38 | NUR ---
PATIENT HAD DOBHOFF PLACED IN XRAY THIS AFTERNOON. TUBE FEEDING STARTED PER ORDERS AND DIETICIANS RECOMMENDATIONS. TOLERATING WITHOUT DIFFICULTY, FEEDING CURRENTLY INFUSING AT 20MLS/HR WILL INCREASE AT 1800 IF CONTINUES TOLERATING. IV SL. PRN DILAUDID GIVEN Q3 PER ORDERS. UP AD JEFF. NO BM NOTED THIS SHIFT. PATIENT STATES HE FEELS BLOATED AGAIN LIKE HE DID WITH CLEAR LIQUID DIET, PATIENT ABD SAME IN SIZE THIS AM. SCHED SIMETHICON GIVEN FOR COMFORT.
[2018-01-25] VITALS: BP 128/81
[2018-01-25 03:56] LABS: HEMATOCRIT 39.5 % (42.0-52.0); HEMOGLOBIN 13.2 gm/dL (14.0-18.0); MCHC 33.4 g/dL (28.0-37.0); MCV 89.7 fL (80.0-100.0); MPV 8.4 fl. (7.2-11.1); RBC 4.41 mil/uL (4.50-6.00); WBC 9.4 thou/uL (4.0-11.0)
[2018-01-25 04:06] LABS: ALBUMIN 2.5 g/dL (3.4-5.0); CALCIUM 8.8 mg/dL (8.5-10.1); CREATININE 0.8 mg/dL (0.6-1.3); POTASSIUM 3.6 mmol/L (3.5-5.1); TOTAL BILIRUBIN 2.3 mg/dL (<0.1-1.0); TOTAL PROTEIN 6.9 g/dL (6.4-8.2)
[2018-01-25 08:20] VITALS: BP 137/91
--- NOTE | 2018-01-25 11:44 | NUR ---
Following for d/c planning needs. Pt was started on tube feedings yesterday. Called [facility], [facility], [facility] and [facility]. The first 3 are not in network with pt's insurance. [facility] will run benefits and call back. Faxed referral.
--- NOTE | 2018-01-25 16:19 | NUR ---
PATIENT REMAINS NPO. DOBHOFF REMAINS IN PLACE WITH VITAL AF 1.2 INFUSING AT 75MLS/HR WITH GOAL RATE REACHED. PATIENT UP AD JEFF AROUND ROOM. PRN DILAUDID GIVEN Q3 HOURS FOR ABD PAIN, PRN COMPAZINE GIVEN FOR HICCUPS ORDERED. IV REMAINS SL.
[2018-01-25 16:42] VITALS: BP 136/82
[2018-01-25 21:30] VITALS: BP 130/91
[2018-01-26 03:57] LABS: HEMATOCRIT 39.8 % (42.0-52.0); HEMOGLOBIN 13.3 gm/dL (14.0-18.0); MCH 30.1 pg (26.0-34.0); MCHC 33.5 g/dL (28.0-37.0); MCV 89.7 fL (80.0-100.0); MPV 8.2 fl. (7.2-11.1); RBC 4.44 mil/uL (4.50-6.00); RDW-CV 14.1 % (10.5-14.5); WBC 10.9 thou/uL (4.0-11.0)
[2018-01-26 04:35] LABS: ALBUMIN 2.6 g/dL (3.4-5.0); CALCIUM 9.2 mg/dL (8.5-10.1); CREATININE 0.8 mg/dL (0.6-1.3); POTASSIUM 3.9 mmol/L (3.5-5.1); TOTAL BILIRUBIN 2.9 mg/dL (<0.1-1.0); TOTAL PROTEIN 7.1 g/dL (6.4-8.2)
--- NOTE | 2018-01-26 07:31 | NUR ---
PATIENT SLEPT PART OF THE NIGHT. ABOUT 0100 PATIENT ACCIDENTALLY PULLED OUT HIS DOBHOFF. PATIENT WAS GIVEN PAIN MEDICINE ABOUT EVERY THREE HOURS. WILL CONTINUE TO MONITOR.
--- NOTE | 2018-01-26 10:06 | NUR ---
RYANNE RECIEVED A CALL FROM DIPAK WITH [facility] TO DISCUSS FINANCIAL ASSIISTACE FOR THE PATIENTS ORDERED TUBE FEEDING. DIPAK INFORMS THAT THE ORDERED TUBE FEEDING IS ONE OF THE MORE EXPENSIVE, AND QURESTIONS IF AN ALTERNATE FEEDING COULD BEE ORDERED. DIPAK ALSO INFORMS OF A PATIENT ASSISTANCE PROGRAM AVAILABLE TO THE PATIENT. RYANNE WAS INFORMED BY THE RN IN-CHARGE OF THE PATIENT THAT THE PATIENT IS NOT COHERENT ENOUGH TO SPEAK WITH CM AT THIS TIME. CM WILL FOLLOW-UP WITH THE PATIENT AT ANOTHER TIME TO DISUCSS COST OF TUBE FEEDING, AND FINANCIAL ASSISTANCE PROGRAM. [facility] OFFICE PHONE: [phone] [facility] PHONE: [phone] (NOT AVAILABLE FRI 01/27/18) [facility] (CLINICAL LIAISON) PHONE: [phone] PATIENT ASSISTANCE PROGRAM: [phone]
--- NOTE | 2018-01-26 18:45 | NUR ---
PATIENT HAS BEEN SLEEPING TODAY AND SOMEWHAT UNCOOPERATIVE. VITAL SIGNS HAVE BEEN STABLE ON ROOM AIR. PATIENT REFUSED SCAN THIS MORNING THEN DECIDED TO HAVE THIS AFTERNOON, WAITING ON RESULTS AND PROVIDER TO GO OVER. PATIENT IS INCONSISTENT WITH STORIES AND WHAT HE TELLS NURSES, PROVIDERS AND HIS MOTHER. NURSE ORIENTOR HAS SPOKE TO PATIENT AND MOTHER. OFFERED TO CALL GI PROVIDER FOR MOTHER AND PATIENT, MOTHER DID NOT WANT TO SPEAK WITH DR GARSIA AND WANTS TO WAIT TO SEE WHO MIGHT BE HERE TOMORROW. ENCOURAGED PATIENT TO GET UP AND AMBULATE, TAKE A SHOWER, SIP ON LIQUIDS, GET MOVING. UNABLE TO TELL IF PATIENT IS BEING SARCASTIC OR IF HE IS HAVING MENTAL STATUS CHANGE. MOTHER STOPPED BY NURSING STATION TO SAY THAT SHE WAS LEAVING, CALL LIGHT IS IN REACH, WILL CONTINUE TO [facility].
[2018-01-26 20:00] VITALS: BP 125/87
[2018-01-27] VITALS (12 sets, daily range): BP systolic 135–152; BP diastolic 96–107
[2018-01-27 04:18] LABS: ABSOLUTE EOSINOPHILS 0.2 thou/uL (0.0-0.7); ABSOLUTE LYMPHOCYTES 1.2 thou/uL (0.8-5.3); ABSOLUTE MONOCYTES 1.2 thou/uL (0.0-1.2); ABSOLUTE NEUTROPHILS 8.3 thou/uL (1.6-8.1); BASOPHILS 0.3 %; EOSINOPHILS 2.2 %; HEMATOCRIT 39.4 % (42.0-52.0); HEMOGLOBIN 12.9 gm/dL (14.0-18.0); MCH 29.5 pg (26.0-34.0); MCHC 32.7 g/dL (28.0-37.0); MCV 90.3 fL (80.0-100.0); NUCLEATED RBCS 0 /100WBC; POLYS 75.5 %; RBC 4.37 mil/uL (4.50-6.00); RDW-CV 13.9 % (10.5-14.5)
[2018-01-27 04:19] LABS: PLATELET COUNT* 393 thou/uL (150-400)
[2018-01-27 04:45] LABS: ALBUMIN 2.4 g/dL (3.4-5.0); CALCIUM 8.7 mg/dL (8.5-10.1); MAGNESIUM 2.2 mg/dL (1.8-2.4); POTASSIUM 4.5 mmol/L (3.5-5.1); TOTAL BILIRUBIN 3.4 mg/dL (<0.1-1.0); TOTAL PROTEIN 6.9 g/dL (6.4-8.2)
--- NOTE | 2018-01-27 05:40 | NUR ---
PATIENT SLEPT MOST OF THE NIGHT. PATIENT HAD NO COMPLAINTS OF PAIN OR NAUSEA. PROCAL WAS STARTED AT 125 ML/HR AND CONTINUES ORDERED. WILL CONTINUE TO MONITOR.
[2018-01-27 11:04] LABS: INR 1.5; PROTIME 14.1 Seconds (9.20-11.50)
--- NOTE | 2018-01-27 16:30 | NUR ---
JESUS spoke with pt nurse about pt nutrition needs; pt nurse said that he is receiving Pro Barry through IV but otherwise the hope is pt will be able to eat since his procedure today. SW to continue to follow.
--- NOTE | 2018-01-27 16:48 | CON ---
[facility] [address] [place] [address] CONSULTATION Name: ZBIGNIEW RODRIGUEZ Room: [address] [place] .R.#: [id number] Admission: 01/17/18 Attend Phys: Destiny Poole Discharge: Date of : 78 Report #: [id number] THIS REPORT FOR: //name// CC: DARSHAN physician/PCP Crescencio Howe DATE OF SERVICE: 01/18/2018 ADDENDUM I have personally seen and examined the patient and reviewed labs and imaging. The patient with recent history of hospitalization due to pancreatitis on 01/02/2018. He had pancreatic phlegmon and leukocytosis. The patient was discharged home on the and returned to hospital on with worsening pain. There is a 6.[address] and 8 cm fluid collection per ultrasound. This is an inflammatory fluid collection as the patient has not had enough time to develop pseudocyst or walled-off necrosis. This usually occurs after 4 weeks. The patient has leukocytosis with WBC of 15, down from 24 in previous admission. He denies any fever and chills. He has some reflux and abdominal pain, which is mostly spasm. CT also shows that the fluid collection is pressing on the stomach. We would like to start feeding as soon as possible. I will put him on Reglan and double dose of PPI. If he cannot tolerate p.o. intake, we will consider Dobbhoff enteral feeding. We will continue monitoring his white count and lipase. He will need a CT in 2 weeks and an endoscopic ultrasound subsequent to that. Note that there is no evidence of biliary stones causing pancreatitis. <ELECTRONICALLY SIGNED> By: Any Carlton MD 01/27/18 [id number] [id number] Carlton MD /nt
--- NOTE | 2018-01-27 20:25 | NUR ---
PT REMAINS ON UNIT FOR PANCREATITIS, IR PLACED BILIARY DRAIN IN R FLANK. IT IS PATENT AND DRAINING WITH 125 OUTPUT NOTED AT 1800 THIS SHIFT, PT B/P ELEVATED UPON ARRIVAL OF PROCEDURE, NEW ORDER FOR LASIX IV GIVEN AND PRN MEDICATION ADMINISTERED AT 1745 FOR 6/10 PAIN IN UPPER ABD, PT IS SLEEPING IN BED WITH EYES CLOSED, HOURLY ROUNDING MAINTAINED
[2018-01-28 04:25] LABS: HEMATOCRIT 38.6 % (42.0-52.0); HEMOGLOBIN 12.8 gm/dL (14.0-18.0); MCH 29.8 pg (26.0-34.0); MCHC 33.1 g/dL (28.0-37.0); MCV 89.8 fL (80.0-100.0); MPV 8.1 fl. (7.2-11.1); NUCLEATED RBCS 0 /100WBC; PLATELET COUNT* 329 thou/uL (150-400); RDW-CV 14.2 % (10.5-14.5); WBC 11.5 thou/uL (4.0-11.0)
[2018-01-28 04:52] LABS: ALBUMIN 2.3 g/dL (3.4-5.0); CALCIUM 8.8 mg/dL (8.5-10.1); CREATININE 0.8 mg/dL (0.6-1.3); POTASSIUM 4.1 mmol/L (3.5-5.1); TOTAL BILIRUBIN 2.2 mg/dL (<0.1-1.0); TOTAL PROTEIN 6.9 g/dL (6.4-8.2)
[2018-01-28 06:26] LABS: ABSOLUTE LYMPHOCYTES 0.8 thou/uL (0.8-5.3); ABSOLUTE MONOCYTES 0.8 thou/uL (0.0-1.2); ABSOLUTE NEUTROPHILS 9.9 thou/uL (1.6-8.1); PLATELET ESTIMATE ADEQUATE
--- NOTE | 2018-01-28 07:48 | NUR ---
DURING NIGHT PATIENT COMPLAIN OF INCREASED ABDOMINAL DISCOMFORT THAT WORSENED SHIFT WENT ON THE PATIENT REQUESTED PRN DILAUDID X 3 DOSES EFFECTIVE DRAIN PATENT AND FLOWIN 5O ML EMPTIED AT SHIFT START ACCOUNT LEADER EMPTIED AT SHIFT END SEE DOCUMENTATION WITHOUT S/SX OF ADVERSE EFFECT REPORT GIVEN TO ONCOMING RN
[2018-01-28 08:00] VITALS: BP 138/94
--- NOTE | 2018-01-28 18:20 | NUR ---
SHIFT NOTE - PT OFF UNIT THIS AM FOR XRAY. TOLERATED WC WELL. ABD DISTENDED THIS SHIFT. AWARE. BILIARY FLUID APPEARS LESS DARK THE SHIFT PROGRESSES. STILL HAS GOOD OUTPUT BUT COLOR IS DITCHING MACHINE OPERATOR THAN THIS AM. IVF RATE WAS INCREASED THIS AM TO PPN 250ML/HR.
[2018-01-28 20:00] VITALS: BP 128/90
[2018-01-29 04:09] LABS: HEMATOCRIT 38.4 % (42.0-52.0); HEMOGLOBIN 12.7 gm/dL (14.0-18.0); MCH 29.6 pg (26.0-34.0); MCV 89.9 fL (80.0-100.0); MPV 8.3 fl. (7.2-11.1); RBC 4.27 mil/uL (4.50-6.00); RDW-CV 14.2 % (10.5-14.5); WBC 13.7 thou/uL (4.0-11.0)
[2018-01-29 04:51] LABS: ALBUMIN 2.1 g/dL (3.4-5.0); CALCIUM 8.6 mg/dL (8.5-10.1); CREATININE 0.8 mg/dL (0.6-1.3); DIRECT BILIRUBIN 1.1 mg/dL (<0.1-0.3); POTASSIUM 4.1 mmol/L (3.5-5.1); TOTAL BILIRUBIN 1.7 mg/dL (<0.1-1.0); TOTAL PROTEIN 6.7 g/dL (6.4-8.2)
--- NOTE | 2018-01-29 06:53 | NUR ---
PATIENT RESTING THROUGH NIGHT. PAIN MEDS X 2 DURING THIS SHIFT. ABD DRAIN WITH 350 OUT. ALERT ORIENTED, DENIES ANY FURTHER COMPLAINTS OF PAIN, DISCOMFORT OR SOA. NO SIGNS OF DISTRESS. CONT. WITH PLAN OF CARE AT THIS TIME.
[2018-01-29 08:00] VITALS: BP 130/86
--- NOTE | 2018-01-29 16:46 | NUR ---
NOTIFIED TO PLACE A PICC FOR A PATIENT NEEDING ACCESS AND FOR PPN/TPN. ORDER AND CONSENT NOTED. THE PROCEDURE WELL BENIFITS AND RISK FOR DVT AND INFECTION DISCUSSED WITH THE PATIENT AND HE VERBALIZED UNDERSTANDING. THE RUE BASILIC WAS WIDLEY PATENT. A #5F DOUBLE LUMEN POWER PICC WAS PLACED PER HOSPITAL POLICY AFTER A BEDSIDE TIIMEOUT WAS COMPLETE. LINE WAS TRIMMED TO 42CM AND ADVANCED WITHOUT DIFFICULTY. LINECONFIRMED WITH 3CG AT 2 CM EXTERNAL. LINE SECURED AND RELEASED FOR USE
[2018-01-29 17:09] VITALS: BP 126/84
--- NOTE | 2018-01-29 17:37 | NUR ---
SHIFT NOTE - NEW PICC LINE PLACED THIS AFTERNOON PER BEDSIDE. PT TOLERATED WELL. PICC CONFIRMED AND OK TO USE. BLOOD RETURN OBTAINED IN BOTH LINES. PT IS WITH ABD DISTENTION THIS SHIFT, APPROX SAME YESTERDAY. IV DILAUDID GIVEN 4 TIMES THIS SHIFT. PT C/O EPIGASTRIC PAIN, RT FLANK PAIN, AND BACK PAIN. PT ABLE TO SIT IN CHAIR FOR AN HOUR THIS SHIFT. TOLERATED WELL.
[2018-01-30 05:07] VITALS: BP 132/88
[2018-01-30 06:43] LABS: URINE BILIRUBIN NEGATIVE (Negative); URINE BLOOD NEGATIVE (Negative); URINE CLARITY CLEAR; URINE COLOR YELLOW; URINE GLUCOSE-RANDOM NEGATIVE (Negative); URINE KETONES NEGATIVE (Negative); URINE LEUKOCYTES-REFLEX NEGATIVE (Negative); URINE NITRITE-REFLEX NEGATIVE (Negative); URINE PROTEIN NEGATIVE (Negative); URINE SPECIFIC GRAVITY <= 1.005 (1.005-1.030); URINE UROBILINOGEN 0.2 E.U./dl (0.2-1.0)
--- NOTE | 2018-01-30 07:05 | NUR ---
PT SLEPT FAIRLY WELL OVERNIGHT, RECEIVING DILAUDID IV FOR CO ABD PAIN WITH GOOD RESULT. CO NAUSEA WHEN RECEIVING DILAUDID, REFUSES ZOFRAN BUT USING COOL CLOTH FOR COMFORT UNTIL IT SUBSIDES-FAIRLY QUICKLY. SO PICC PROCALAMINE INFUSING PER PUMP. AM LAB DRAWN. USING URINAL TO VOID, UA SENT TO LAB. BILIARY DRAIN TO RYAN WITH DK GREEN DRAINAGE. ABLE TO USE CALL LITE AND MAKE NEEDS KNOWN.
[2018-01-30 16:00] VITALS: BP 142/69
--- NOTE | 2018-01-30 19:39 | NUR ---
PT UP AD JEFF TODAY. IS WEAK BUT ABLE TO AMBULATE TO TOILET, PASSING FLAUTUS PER PT. SOME C/O PAIN AND NEW ORDER RECEIVED FOR OXY IR, ADMINISTERED THIS AFTERNOON, PT REPORTS RELIEF AND IS PLEASED WITH OUTCOME. CONT ON IV PROCALAMINE AND MEDICATION GIVEN PER ORDERS, PT CURRENTLY RESTING IN BED, HOURLY ROUNDING MAINTAINED.
[2018-01-30 23:41] VITALS: BP 128/93
[2018-01-31 07:00] LABS: ALBUMIN 2.2 g/dL (3.4-5.0); CALCIUM 8.7 mg/dL (8.5-10.1); CREATININE 0.6 mg/dL (0.6-1.3); POTASSIUM 4.2 mmol/L (3.5-5.1); TOTAL BILIRUBIN 1.9 mg/dL (<0.1-1.0); TOTAL PROTEIN 7.4 g/dL (6.4-8.2)
--- NOTE | 2018-01-31 07:43 | NUR ---
PT SLEPT WELL OVERNIGHT, TAKING PO PAIN MED WITH GOOD RELIEF OF ABD PAIN. BILI DRAIN INTACT DRAINING GREEN LIQUID. AMBULATED TO BATHROOM TO VOID OVERNIGHT, AND USING URINAL AT TIMES. PASSING FLATUS. AM LABS DRAWN SO PICC. PROCALAMINE INFUSING PER PUMP SO. DENIES NAUSEA. ABLE TO USE CALL LITE AND MAKE NEEDS KNOWN. STOOL SOFTENER GIVEN AT HS.
[2018-01-31 08:15] VITALS: BP 135/90
--- NOTE | 2018-01-31 16:26 | NUR ---
PATIENT GIVEN PRN OXY IR X 1 THIS SHIFT FOR ABD PAIN. PRN ZOFRAN GIVEN X 1 FOR NAUSEA. PATIENT HAS SLEPT MOST OF SHIFT. IV PROCAL CAN BE DC'D IF CONTINUES TOLERATING REG DIET AT DINNER. RIGHT PICC FLUSHING WITHOUT DIFFICULTY, GOOD BLOOD RETURN NOTED. RIGHT BILIARY BAG DRAINING YELLOW/BROWN DRAINAGE.
[2018-02-01 01:00] VITALS: BP 126/92
--- NOTE | 2018-02-01 05:36 | NUR ---
PT SLEPT FAIRLY WELL OVERNIGHT. HAS RECEIVED PO PAIN MED X2 OVERNIGHT FOR CO ABD PAIN. PASSING FLATUS, BURPING SOME HE STATES. UP AMBULATING IN ROOM. VOIDING WITHOUT DIFFICULTY. SO PICC PROCALAMINE INFUSING PER PUMP. NO N/V THIS SHIFT, REFUSED HS SNACK. BILI DRAIN WITH 200ML GREEN DRAINAGE. ABLE TO USE CALL LITE AND MAKE NEEDS KNOWN.
[2018-02-01 08:15] VITALS: BP 128/89
--- NOTE | 2018-02-01 12:06 | NUR ---
RYANNE WAS INFORMED TO RETURN CALL TO DIPAK NURSE NET DEVELOPER WITH [employer] TO DISCUSS DISCHARGE PLANNING FOR THE PATIENT. CM LEFT A VM FOR DIPAK TO RETURN CALL TO DISCUSS DISCHARGE PLANNING NEEDS. RYANNE WILL REMAIN AVAILABLE TO ASSIST AND FOLLOW NEEDED. DIPAK NURSE NET DEVELOPER, [employer] PHONE: [phone] [phone]
[2018-02-01 18:59] VITALS: BP 124/89
[2018-02-01 20:30] VITALS: BP 120/86
--- NOTE | 2018-02-01 20:33 | NUR ---
PATIENT RESTING IN BED. PATIENT IS UP AD JEFF IN ROOM. PATIENT ENCOURAGED TO WALK. PATIENT HAS COMPLAINTS OF BLOATING AND CONSTIPATION, BISACODYL AND MIRALAX GIVEN WITH NO BOWEL MOVEMENT, PATIENT IS PASSING FLATUS. PATIENT HAS FAIR APPETITE, BOOST SUPPLEMENTS PROVIDED. PATIENT HAS HAD COMPALINTS OF ABDOMINAL PAIN, TREATED ADEQUATELTY WITH OXYCODONE. PATIENT HAS BILIARY DRAIN WITH MODERATE MURKY BROWN OUTPUT. PATIENT DENIES ANY NEEDS AT THIS TIME. CALL LIGHT WITHIN REACH. WILL CONTINUE TO MONITOR.
--- NOTE | 2018-02-02 05:16 | NUR ---
PT SLEPT AT INTERVALS DURING THE NIGHT, PICC IN PLACE, AMBULATED HALLS AT HS, REFUSED PAIN MEDICINE. DID HAVE A BOUT OF DRY HEAVING DURING THE NIGHT, PRN ZOFRAN GIVEN WITH RELIEF. DRAIN IN PLACE. CALL LIGHT IN REACH, WILL CONTINUE TO MONITOR
[2018-02-02 07:41] LABS: CALCIUM 9.7 mg/dL (8.5-10.1); CREATININE 0.9 mg/dL (0.6-1.3); MAGNESIUM 2.3 mg/dL (1.8-2.4); POTASSIUM 4.2 mmol/L (3.5-5.1)
[2018-02-02 08:00] VITALS: BP 117/82
[2018-02-02 16:32] VITALS: BP 128/89
--- NOTE | 2018-02-02 19:48 | NUR ---
PATIENT RESTING IN BED. PATIENT HAS COMPLAINTS OF GAS PAIN AND BLOATING BUT HAS DENIED ANY NEED FOR PAIN MEDICATION. PATIENT HAS FAIR APPETITE TODAY AND HAS HAD ENSURE SUPPLEMENTS THIS EVENING. PATIENT HAS HAD NO BOWEL MOVEMENT TODAY BUT CONTINUES TO PASS GAS. PATIENT IS UP AD JEFF IN ROOM. PATIENT DENIES ANY NEEDS AT THIS TIME. CALL LIGHT WITHIN REACH. WILL CONTINUE TO MONITOR.
[2018-02-02 20:15] VITALS: BP 123/92
--- NOTE | 2018-02-03 05:52 | NUR ---
PT SLEPT MOST OF SHIFT. ASSESSMENT DOCUMENTED. MEDS GIVEN PER E-MAR. PICC PATENT. PAIN MEDICATION GIVEN ONCE THIS SHIFT. NO REPORTS OF NAUSEA. PT REFUSED LORAZEPAM THIS SHIFT STATING HE THOUGH THAT IT MIGHT HAVE BEEN WHAT MADE HIM NAUSEATED. WILL CONTINUE WITH PLAN OF CARE.
[2018-02-03 10:13] VITALS: BP 123/89
[2018-02-03 16:35] VITALS: BP 136/90
--- NOTE | 2018-02-03 18:14 | NUR ---
PATIENT HAS BEEM ALERT AND ORIENTED TODAY PLEASANT BUT FLAT. READY TO GO HOME, HAS HAD PAIN TODAY BUT IS NOT WANTING PAIN MEDICATION AT THIS TIME. DENIES NAUSEA TODAY. UP AD JEFF IN ROOM AND AMBULATING IN THE HALLWAYS, HAS SOME BLOATING AND PASSING FLATUANCE TODAY, MILK OF MAG GIVEN TODAY. CALL LIGHT IS IN REACH WILL CONTINUE TO MONITOR.
[2018-02-03 18:50] LABS: CREATININE 1.1 mg/dL (0.6-1.3); POTASSIUM 4.6 mmol/L (3.5-5.1)
[2018-02-04] VITALS: BP 129/90
[2018-02-04 05:40] LABS: HEMATOCRIT 45.1 % (42.0-52.0); HEMOGLOBIN 14.8 gm/dL (14.0-18.0); MCH 29.5 pg (26.0-34.0); MCHC 32.9 g/dL (28.0-37.0); MCV 89.6 fL (80.0-100.0); MPV 8.5 fl. (7.2-11.1); RBC 5.03 mil/uL (4.50-6.00); RDW-CV 14.2 % (10.5-14.5); WBC 28.2 thou/uL (4.0-11.0)
--- NOTE | 2018-02-04 06:02 | NUR ---
PATIENT SLEPT MOST OF THE NIGHT. PATIENT WAS GIVEN PAIN AND NAUSEA MEDS ONCE THIS SHIFT. PATIENT AND HIS MOTHER ARE CONCERNED THAT THE PATIENT IS GETTING WORSE NOT BETTER AND ARE WANTING TO TALK TO THE DOCTORS TODAY. WILL CONTINUE TO MONITOR.
[2018-02-04 06:49] LABS: ALBUMIN 3.2 g/dL (3.4-5.0); CALCIUM 9.7 mg/dL (8.5-10.1); MAGNESIUM 2.3 mg/dL (1.8-2.4); POTASSIUM 4.8 mmol/L (3.5-5.1); TOTAL BILIRUBIN 2.1 mg/dL (<0.1-1.0); TOTAL PROTEIN 8.1 g/dL (6.4-8.2)
[2018-02-04 08:00] VITALS: BP 131/86
[2018-02-04 16:00] VITALS: BP 138/94
--- NOTE | 2018-02-04 17:36 | NUR ---
PATIENT IS ALERT AND ORIENTED TODAY, HAS SLEPT MOST OF THE DAY, AT LEAST 8 HOURS DURING TODAYS SHIFT. ENCOURAGED PATIENT TO GET UP AND MOVE AROUND BUT REFUSED. VITAL SIGNS HAVE BEEN STABLE ON ROOM AIR. DRAIN IS DRAINING CLEAR BROWN FLUID. UP AD JEFF IN ROOM. MOTHER AT BEDSIDE THIS AFTERNOON VERY ANXIOUS WELL. CALL LIGHT IS IN REACH, WILL CONTINUE TO MONITOR.
[2018-02-05] VITALS: BP 129/95
[2018-02-05 06:30] LABS: HEMATOCRIT 40.6 % (42.0-52.0); HEMOGLOBIN 13.5 gm/dL (14.0-18.0); MCH 29.3 pg (26.0-34.0); MCHC 33.2 g/dL (28.0-37.0); MCV 88.3 fL (80.0-100.0); MPV 7.9 fl. (7.2-11.1); RBC 4.6 mil/uL (4.50-6.00); WBC 21.5 thou/uL (4.0-11.0)
[2018-02-05 06:59] LABS: ALBUMIN 2.8 g/dL (3.4-5.0); CALCIUM 9.1 mg/dL (8.5-10.1); CREATININE 1.1 mg/dL (0.6-1.3); MAGNESIUM 2.4 mg/dL (1.8-2.4); POTASSIUM 4.4 mmol/L (3.5-5.1); TOTAL BILIRUBIN 1.5 mg/dL (<0.1-1.0); TOTAL PROTEIN 7.3 g/dL (6.4-8.2)
--- NOTE | 2018-02-05 07:35 | NUR ---
PATIENT SLEPT MOST OF THE NIGHT. PATIENT DID HAVE SOFT STOOL AFTER SUPPOSITORY WAS GIVEN. PROCAL CONTINUES TO INFUSE AT 125 ML/HR. PATIENT WAS GIVEN PAIN MEDICINE ONCE. WILL CONTINUE TO MONITOR.
[2018-02-05 07:40] VITALS: BP 130/97
--- NOTE | 2018-02-05 17:44 | NUR ---
PATIENT IS ALERT AND ORIENTED TODAY, SEEMS TO BE IN A BETTER MOOD TODAY, STILL SOMEWHAT DEPRESSED. SOME PAIN THAT IS CONTROLLED WELL WITH TRAMADOL, PATIENT REQUESTED SOMETHING NOT STRONG OXYCODONE. FLUIDS RUNNING IN PICC LINE IN RIGHT UPPER ARM. IS UP AD JEFF IN ROOM, TOOK PATIENT FOR A WALK TODAY THE GARDEN AREA OUTSIDE TOLERATED VERY WELL AND APPREICATED BEING OUTSIDE FOR A BIT. DRAIN IS DRAINING WELL, STILL BROWN THIN FLUID. CALL LIGHT IS IN REACH, WILL CONTINUE TO MONITOR.
[2018-02-05 20:00] VITALS: BP 129/93
[2018-02-06 04:31] LABS: HEMATOCRIT 40.2 % (42.0-52.0); HEMOGLOBIN 13.2 gm/dL (14.0-18.0); MCH 29.1 pg (26.0-34.0); MCHC 32.9 g/dL (28.0-37.0); MCV 88.3 fL (80.0-100.0); MPV 8.3 fl. (7.2-11.1); RBC 4.55 mil/uL (4.50-6.00); RDW-CV 14.1 % (10.5-14.5); WBC 20.8 thou/uL (4.0-11.0)
[2018-02-06 05:08] LABS: ALBUMIN 2.7 g/dL (3.4-5.0); CALCIUM 8.9 mg/dL (8.5-10.1); CREATININE 0.9 mg/dL (0.6-1.3); MAGNESIUM 2.2 mg/dL (1.8-2.4); POTASSIUM 4.1 mmol/L (3.5-5.1); TOTAL BILIRUBIN 1.3 mg/dL (<0.1-1.0); TOTAL PROTEIN 7.7 g/dL (6.4-8.2)
--- NOTE | 2018-02-06 05:37 | NUR ---
ASSUMED PT CARE AT 1930. PT ALERT AND ORIENTED X4. PT HAS FLAT AFFECT. PICC TO RIGHT UPPER ARM INFUSING PROCALAMINE WITHOUT DIFFICULTY. PT IS NPO. LABS DRAWN FROM [place] WITHOUT DIFFICULTY. BILI DRAIN TO RLQ DRAINING THIN BROWN FLUIDS. TRAMADOL X1 FOR PAIN. USES CALL LIGHT APPROPRIATELY. CALL LIGHT AND FREQUENTLY USED ITEMS WITHIN REACH. HOURLY ROUNDING IN PROGRESS, WILL CONTINUE TO MONITOR.
[2018-02-06 08:00] VITALS: BP 129/89
--- NOTE | 2018-02-06 12:54 | NUR ---
AM ASSESSMENT AND VITAL SIGNS COMPLETED DOCUMENTED. PT HAS BEEN RESTING INTERMITTENTLY. PT C/O HEADACHE, OXYCODONE GIVEN PER HIS REQUEST. NEW ORDERS REC'D TO START TPN TONIGHT. PT ENCOURAGED TO CALL FOR ASSISTANCE.
--- NOTE | 2018-02-06 15:43 | NUR ---
CM WAS INFORMED BY THE NURSE TERRAZZO FINISHER THAT THE PATIENT IS REQUESTING TRANSFER TO [facility] OR [facility]. CM SPOKE TO JOSEFINA WITH [facility] TRANSFER TEAM TO INFORM OF THE PATIENT'S REQUEST TO TRANSFER TO [facility], AND FAXED PATIENT'S CLINICAL INFO. CM AWAITING A RETURN CALL FROM [facility] TRANSFER TEAM TO DISCUSS ABILTY TO ACCEPT PATIENT. CM WILL REMAIN AVAILABLE TO ASSIST AND FOLLOW NEEDED.
[2018-02-06 16:00] VITALS: BP 127/86
--- NOTE | 2018-02-06 17:06 | NUR ---
PT CONTINUES TO REST IN BED, DECLINED SUGGESTIONS OF SITTING IN A CHAIR OR TAKING A WALK. PT's MOM HERE TO VISIT AND HAS BEEN UPDATED ON HIS LABS AND MEDICATION CHANGES. REGLAN STARTED TODAY. PT WILL BE STARTED ON A LOW FAT DIET AT DINNER. FALL PRECAUTIONS AND HOURLY ROUNDING CONTINUE.
[2018-02-06 23:56] VITALS: BP 126/92
[2018-02-07 04:34] LABS: HEMATOCRIT 41.5 % (42.0-52.0); HEMOGLOBIN 13.9 gm/dL (14.0-18.0); MCH 29.3 pg (26.0-34.0); MCHC 33.5 g/dL (28.0-37.0); MCV 87.3 fL (80.0-100.0); MPV 8.2 fl. (7.2-11.1); RBC 4.75 mil/uL (4.50-6.00); RDW-CV 14.2 % (10.5-14.5); WBC 25.7 thou/uL (4.0-11.0)
[2018-02-07 04:52] LABS: ALBUMIN 2.8 g/dL (3.4-5.0); CALCIUM 9.1 mg/dL (8.5-10.1); CREATININE 0.9 mg/dL (0.6-1.3); MAGNESIUM 2.4 mg/dL (1.8-2.4); POTASSIUM 4.4 mmol/L (3.5-5.1); TOTAL BILIRUBIN 1.5 mg/dL (<0.1-1.0); TOTAL PROTEIN 8.1 g/dL (6.4-8.2)
--- NOTE | 2018-02-07 06:11 | NUR ---
PATIENT SLEPT MOST OF THE NIGHT. TPN WAS STARTED AT 40 ML/HR ORDERED. PATIENT WAS GIVEN PAIN MEDICINE ONCE THIS SHIFT. PATIENT DID STATE HE HAD A SMALL BOWEL MOVEMENT LAST NIGHT. BILIARY DRAIN REMAINS IN PLACE TO RIGHT ABDOMEN. WILL CONTINUE TO MONITOR.
[2018-02-07 08:00] VITALS: BP 118/78
[2018-02-07 16:00] VITALS: BP 124/71
--- NOTE | 2018-02-07 16:06 | NUR ---
SW received information about pt/family requesting transfer to first choice [facility]. SW followed up with [facility] transfer team and confirmed that they denied due to pt request and lateral transition; possible for insurance not to cover a lateral move for services that could possibly be provided at both locations although they are in network with pt insurance. Pt/family second choice would be [facility]; SW called [facility] transfer team and they are unable to accept pt at this time stating that they are at capacity; SW checked in the morning and in the afternoon and they were still at capacity both times. JESUS called and spoke with pt mother Elaine who said that she may look into [facility] and would let SW know if they would prefer SW try transfer to [facility]. SW to continue to follow to assist with safe dc planning.
--- NOTE | 2018-02-07 18:00 | NUR ---
ASSUMED CARE THIS AM, SEE ASSESSMENT FOR DETAILS. DISCOMFORT MANAGED WELL WITH ORAL MEDICATION, HAO DIET AND CARES WELL, CARE PLAN REVIEWED, DENIES QUESTIONS, CONT POC.
[2018-02-08 00:22] VITALS: BP 114/78
[2018-02-08 06:45] LABS: HEMATOCRIT 39.7 % (42.0-52.0); HEMOGLOBIN 13.2 gm/dL (14.0-18.0); MCH 29.4 pg (26.0-34.0); MCHC 33.3 g/dL (28.0-37.0); MCV 88.4 fL (80.0-100.0); MPV 8.5 fl. (7.2-11.1); RBC 4.49 mil/uL (4.50-6.00); RDW-CV 14.3 % (10.5-14.5); WBC 33.9 thou/uL (4.0-11.0)
--- NOTE | 2018-02-08 06:46 | NUR ---
ASSESSMENT COMPLETE. PT SLEPT MOST OF THE NIGHT. PRN PAIN MEDICATION GIVEN TWICE. PT REPORTS INCREASE IN ABDOMINAL PAIN WITH REGLAN. PT HAS TPN INFUSING AT 80. PT IS UP WITH STEADY GAIT. BILI DRAIN IN PLACE WITH 500ML OUTPUT DURING THE NIGHT. PICC IN RIGHT UPPER ARM DRAWS AND FLUSHES WITHOUT DIFFICULTY. SEE ASSESSMENT AND VITALS FOR OTHER DETAILS. CALL LIGHT WITHIN REACH. WILL CONTINUE PLAN OF CARE
[2018-02-08 07:00] LABS: ALBUMIN 2.6 g/dL (3.4-5.0); CALCIUM 8.8 mg/dL (8.5-10.1); CREATININE 0.9 mg/dL (0.6-1.3); POTASSIUM 4.3 mmol/L (3.5-5.1); TOTAL PROTEIN 7.6 g/dL (6.4-8.2)
[2018-02-08 08:00] VITALS: BP 114/74
--- NOTE | 2018-02-08 12:38 | NUR ---
SW received voicemail message from pt mother Elaine expressing that she and pt decided they would not want pt to transfer at this time. Pt mom said she especially did not want pt to go to and she did not further pursue [facility] either, she wanted pt to remain here as she felt possibly pt was beginning to look and feel better. SW to continue to follow to assist with safe dc planning.
[2018-02-08 16:18] VITALS: BP 121/81
--- NOTE | 2018-02-08 18:52 | NUR ---
DECLINED REGLAN THIS SHIFT, NO PAIN MEDICATION REQUESTED, HAO FOOD/FLUID WELL, DID HAVE 2 BM TODAY, DID SHOWER, DSG TO SO PICC CHANGED, NO DISTRESS NOTED, CARE PLAN REVIEWED W/ PATIENT, DENIES QUESTION, CONT POC
[2018-02-09] VITALS: BP 124/80
[2018-02-09 04:19] LABS: HEMATOCRIT 36.9 % (42.0-52.0); HEMOGLOBIN 12.2 gm/dL (14.0-18.0); MCHC 33.1 g/dL (28.0-37.0); MCV 87.7 fL (80.0-100.0); MPV 8.3 fl. (7.2-11.1); RBC 4.2 mil/uL (4.50-6.00); RDW-CV 14.2 % (10.5-14.5)
[2018-02-09 04:40] LABS: ALBUMIN 2.4 g/dL (3.4-5.0); CALCIUM 8.5 mg/dL (8.5-10.1); CREATININE 0.8 mg/dL (0.6-1.3); MAGNESIUM 2.1 mg/dL (1.8-2.4); POTASSIUM 4.3 mmol/L (3.5-5.1); TOTAL BILIRUBIN 2.1 mg/dL (<0.1-1.0); TOTAL PROTEIN 7.4 g/dL (6.4-8.2)
--- NOTE | 2018-02-09 05:22 | NUR ---
ASSESSMENT COMPLETE. PT SLEPT MOST OF THE NIGHT WITHOUT ANY CONCERNS. PRN PAIN MEDICATION GIVEN ONCE AT BEGINING OF NIGHT. PT IS ON ROOM AIR. PT HAS TPN INFUSING AT THIS TIME. PT USES URINAL NEEDED. PO FLUIDS ENCOURAGED. PT REFUSING REGLAN DURING THE NIGHT REPORTING IT CAUSES PAIN. PT IS UP AD JEFF WITH STEADY GAIT. BILI DRAIN IN PLACE. SEE ASSESSMENT AND VITALS FOR OTHER DETAILS. CALL LIGHT WITHIN REACH, WILL CONTINUE PLAN OF CARE
[2018-02-09 10:35] VITALS: BP 109/72
--- NOTE | 2018-02-09 13:22 | NUR ---
SW received call from pt mother pleading for transfer. Pt mother said that today pt/pt mother felt pt was not doing as well and expressed reasoning to pursue transfer to [facility]. JESUS called [facility] transfer team and faxed face sheet and copy of insurance card. Phil from [facility] transfer team called JESUS and discussed the [facility] doctor will discuss case with Dr Carlton. Then Phil called back and informed JESUS that pt has been accepted to [facility] on [address] and that as soon as a bed is available, the transfer team will contact JESUS or med surg nurses' station (if after 4:30 pm) to complete details and process of transfer.
--- NOTE | 2018-02-09 16:52 | NUR ---
PATIENT IS ALERT AND ORIENTED TODAY, PLEASANT BUT ANXIOUS. MOTHER MAKES ANXIETY WORSE. TEMPATURE SPIKED THIS AFTERNOON, TYLENOL BROUGHT TEMPATURE DOWN FROM 102.6 TO 100.6. PATIENT HAS COMPLAINTS OF PAIN THAT IS CONTROLLED WITH ORAL PAIN MEDICATION. PATIENT HAS BEEN SLEEPING ALL DAY. NO COMPLAINTS OF NAUSEA TODAY. PATIENT HAS A DRAIN THAT IS DRAINING WELL. UP AD JEFF IN ROOM. PATIENT IS BEING TRANSFERED TO [facility]. REPORT GIVEN TO OZIEL AT [facility]. TPN DISCONNECTED AND PICC FLUSHED. MOTHER CAME TO TAKE PLAYSTATION, DVD PLAYER AND COMPUTER HOME. PATIENT LEFT VIA AMBULANCE TO [facility].
== END 2018-02-09 16:55 | disposition short-term general hospital (02) | DRG 438 ==
LOC: M.ERS 10:16 → M.TBA-ER 13:04 → M.3W 13:04
PROVIDERS: Family Medicine; Internal Medicine; Internal Medicine Gastroenterology; Nurse Practitioner Adult Health; Nurse Practitioner Psychiatric/Mental Health; Radiology Diagnostic Radiology; ADMIT Internal Medicine
PROC: 0F9930Z Drainage of Common Bile Duct with Drainage Device, Percutaneous Approach (ICD-10-PCS; principal; 2018-01-27)
PROC: 05HY33Z Insertion of Infusion Device into Upper Vein, Percutaneous Approach (ICD-10-PCS; 2018-02-01)
DX: K85.90 Acute pancreatitis without necrosis or infection, unspecified (principal); E43 Unspecified severe protein-calorie malnutrition; K83.1 Obstruction of bile duct; R65.10 Systemic inflammatory response syndrome (SIRS) of non-infectious origin without acute organ dysfunction; K86.3 Pseudocyst of pancreas; K31.1 Adult hypertrophic pyloric stenosis; K56.7 Ileus, unspecified; E87.1 Hypo-osmolality and hyponatremia; K59.00 Constipation, unspecified; F10.10 Alcohol abuse, uncomplicated; F17.210 Nicotine dependence, cigarettes, uncomplicated; Z79.899 Other long term (current) drug therapy; Z68.23 Body mass index [BMI] 23.0-23.9, adult; Z88.5 Allergy status to narcotic agent; Z82.49 Family history of ischemic heart disease and other diseases of the circulatory system